=== PATIENT | male | born 1965 | race Caucasian/White ===

== ENCOUNTER 2018-06-13 22:25 | Emergency (ER) | payer SELFPAY ==
[2018-06-13 23:02] VITALS: PULSE 53
[2018-06-13] MEDS ORDERED: SODIUM CHLORIDE 0.9% 1,000 ML IV STA (23:17)
--- NOTE | 2018-06-13 23:17 | ED ---
Chest Pain HPI - General Chief Complaint: Chest Pain Stated Complaint: sharp pain in right side of chest Time Seen by Provider: 06/13/18 23:17 Source: patient, RN notes reviewed, old records reviewed Mode of arrival: ambulatory Limitations: no limitations - History of Present Illness Initial Comments: This is a 52-year-old male the ER for evaluation chest pain. Presenting with right-sided chest pain right-sided abdominal pain. Sharp stinging pain that was episodic after eating tonight. Patient does have history of heart disease with prior stents. Patient states that time that was severe crushing chest pain feeling like he was stuck in between a bike. Patient denies any recent medication changes, he states he has been working longer hours than normal secondary to holiday but denies any other change in medications no change distress denies drugs rel call. No fevers cough or congestion currently. Patient is currently chest pain-free or pain-free MD Complaint: chest pain (Right-sided flank pain) -: hour(s) Onset: during rest, after eating Pain Location: right chest (Right flank) Pain Radiation: none, abdomen Severity: moderate Severity scale (1-10): 3 Quality: sharp Consistency: intermittent, now resolved Improves With: nothing Worsens With: nothing Anginal Symptoms: other (None) Other Symptoms: other (None) Treatments Prior to Arrival: none - Related Data Home Medications Medication Instructions Recorded Confirmed Aspirin EC [Ecotrin Low Dose] 162 mg PO DAILY 06/13/18 06/13/18 Atorvastatin [Lipitor] 80 mg PO DAILY 06/13/18 06/13/18 Clopidogrel [Plavix] 75 mg PO DAILY 06/13/18 06/13/18 Lisinopril [Zestril] 20 mg PO DAILY 06/13/18 06/13/18 Metoprolol Tartrate [Lopressor] 25 mg PO DAILY 06/13/18 06/13/18 Allergies Allergy/AdvReac Type Severity Reaction Status Date / Time No Known Allergies Allergy Verified 06/13/18 23:21 Review of Systems ROS Statement: Those systems with pertinent positive or pertinent negative responses have been documented in the HPI. ROS Other: All systems not noted in ROS Statement are negative. EKG Findings - EKG Comments: EKG Findings:: EKG shows sinus recurred 53, NC 200, QRS 70, QTc 394 Past Medical History Past Medical History: Chest Pain / Angina, Hyperlipidemia, Hypertension, Myocardial Infarction ([place]) History of Any Multi-Drug Resistant Organisms: None Reported Past Surgical History: Heart Catheterization With Stent, Orthopedic Surgery Additional Past Surgical History / Comment(s): left wrist and left shoulder Past Psychological History: No Psychological Hx Reported Smoking Status: Current every day smoker Past Alcohol Use History: None Reported Past Drug Use History: None Reported General Exam Limitations: no limitations General appearance: alert, in no apparent distress Head exam: Present: atraumatic, normocephalic, normal inspection Eye exam: Present: normal appearance, PERRL, EOMI. Absent: scleral icterus, conjunctival injection, periorbital swelling ENT exam: Present: normal exam, mucous membranes moist Neck exam: Present: normal inspection. Absent: tenderness, meningismus, lymphadenopathy Respiratory exam: Present: normal lung sounds bilaterally. Absent: respiratory distress, wheezes, rales, rhonchi, stridor Cardiovascular Exam: Present: regular rate, normal rhythm, normal heart sounds. Absent: systolic murmur, diastolic murmur, rubs, gallop, clicks GI/Abdominal exam: Present: soft, normal bowel sounds. Absent: distended, tenderness, guarding, rebound, rigid Extremities exam: Present: normal inspection, full ROM, normal capillary refill. Absent: tenderness, pedal edema, joint swelling, calf tenderness Back exam: Present: normal inspection Neurological exam: Present: alert, oriented X3, CN II-XII intact Psychiatric exam: Present: normal affect, normal mood Skin exam: Present: warm, dry, intact, normal color. Absent: rash Course Vital Signs 06/13/18 06/13/18 22:57 23:15 Temperature 98.2 F Pulse Rate 53 L 53 L Respiratory 17 16 Rate Blood Pressure 131/87 110/93 O2 Sat by Pulse 97 97 Oximetry - Reevaluation(s) Reevaluation #1: 06/13/18 23:48 Medical records reviewed Reevaluation #2: 06/13/18 23:48 Patient remains asymptomatic Chest Pain MDM - MDM 52 male the ER for eversion of stabbing right-sided flank pain which is intermittent and now resolved. No abdominal tenderness. EKG and labwork is normal patient can be discharged home Disposition Clinical Impression: Chest pain Disposition: HOME SELF-CARE Condition: Good Instructions: Chest Pain (ED) Is patient prescribed a controlled substance at d/c from ED?: No Referrals: None,Stated [Primary Care Provider] - 1-2 days
[2018-06-13 23:41] LABS: Basophils # (A) 0.1 k/uL (0-0.2); Basophils % (A) 1 %; Eosinophils # (A) 0.2 k/uL (0-0.7); Eosinophils % (A) 3 %; HCT 46.9 % (39.0-53.0); HGB 15.5 gm/dL (13.0-17.5); Lymphocytes # (A) 2.2 k/uL (1.0-4.8); Lymphocytes % (A) 29 %; MCH 29.7 pg (25.0-35.0); Mean Platelet Volume 7.1; Monocytes # (A) 0.5 k/uL (0-1.0); Monocytes % (A) 6 %; Neutrophils # (A) 4.6 k/uL (1.3-7.7); Neutrophils % (A) 59 %; Platelet Count 214 k/uL (150-450); RBC 5.21 m/uL (4.30-5.90); RDW 12.9 % (11.5-15.5); WBC 7.8 k/uL (3.8-10.6)
[2018-06-13 23:52] LABS: INR 0.9 (<1.2); Partial Thromboplastin Time 25.3 sec (22.0-30.0); Prothrombin Time 10.1 sec (9.0-12.0)
[2018-06-14 00:03] LABS: ALT 50 U/L (21-72); AST 26 U/L (17-59); Albumin 4.1 g/dL (3.5-5.0); Alkaline Phosphatase 49 U/L (38-126); Anion Gap 8 mmol/L; Blood Urea Nitrogen 19 mg/dL (9-20); Calcium 9.6 mg/dL (8.4-10.2); Carbon Dioxide 28 mmol/L (22-30); Chloride 105 mmol/L (98-107); Glucose 107 mg/dL (74-99); Lipase 141 U/L (23-300); Magnesium 2.1 mg/dL (1.6-2.3); Potassium 4.3 mmol/L (3.5-5.1); Sodium 141 mmol/L (137-145); Total Bilirubin 0.9 mg/dL (0.2-1.3); Total Protein 6.5 g/dL (6.3-8.2)
--- NOTE | 2018-06-14 00:07 | XR ---
EXAMINATION TYPE: XR chest 2V DATE OF EXAM: 06/13/2018 COMPARISON: NONE HISTORY: Chest pain TECHNIQUE: Frontal and lateral views of the chest are obtained. FINDINGS: Heart and mediastinum are normal. Lungs are clear. Diaphragm is normal. There are chest le ads. Bony thorax is intact. IMPRESSION: Normal chest
[2018-06-14 00:24] LABS: Creatine Kinase 114 U/L (55-170)
[2018-06-14 00:37] LABS: Creatine Kinase MB 1.5 ng/mL (0.0-2.4); Troponin I <0.012 ng/mL (0.000-0.034)
[2018-06-14 01:10] VITALS: BP 122/88; RESP 18; TEMP 97.9
== END 2018-06-14 01:09 | disposition home or self-care (01) ==
LOC: EC 22:25
DX: R07.9 Chest pain, unspecified (principal); R10.9 Unspecified abdominal pain; E78.5 Hyperlipidemia, unspecified; I10 Essential (primary) hypertension; I25.2 Old myocardial infarction; F17.200 Nicotine dependence, unspecified, uncomplicated; Z79.02 Long term (current) use of antithrombotics/antiplatelets; Z79.82 Long term (current) use of aspirin; Z79.899 Other long term (current) drug therapy; Z86.79 Personal history of other diseases of the circulatory system; Z95.5 Presence of coronary angioplasty implant and graft
CPT/HCPCS: 36415; 71046; 80053; 82550; 82553; 83690; 83735; 83880; 84484; 85025; 85610; 85730; 93005; 96360; 96361; 99285

== ENCOUNTER 2021-10-09 20:59 | Emergency (ER) | payer OTHER ==
--- NOTE | 2021-10-09 23:54 | XR ---
EXAMINATION TYPE: XR chest 2V DATE OF EXAM: 10/09/2021 COMPARISON: 06/13/2018 HISTORY: Fever TECHNIQUE: 2 views FINDINGS: There is some linear density at the left lung base. Heart and mediastinum are normal. There are no hilar masses. Costophrenic angles are clear. There is some mild spurring in the thoracic spin e. IMPRESSION: Mild subsegmental atelectasis. Normal heart. Atelectasis appears new compared to old exam .
[2021-10-10 01:06] LABS: Basophils # (A) 0.1 k/uL (0-0.2); Basophils % (A) 1 %; Eosinophils # (A) 0.2 k/uL (0-0.7); Eosinophils % (A) 2 %; HCT 47.4 % (39.0-53.0); HGB 16.2 gm/dL (13.0-17.5); Lymphocytes # (A) 0.7 k/uL (1.0-4.8); Lymphocytes % (A) 6 %; MCH 30.8 pg (25.0-35.0); MCHC 34.2 g/dL (31.0-37.0); MCV 90.1 fL (80.0-100.0); Mean Platelet Volume 8.5; Monocytes % (A) 9 %; Neutrophils # (A) 9.7 k/uL (1.3-7.7); Neutrophils % (A) 82 %; Platelet Count 159 k/uL (150-450); RBC 5.26 m/uL (4.30-5.90); RDW 12.5 % (11.5-15.5); WBC 11.8 k/uL (3.8-10.6)
[2021-10-10 01:18] LABS: ALT 32 U/L (4-49); AST 30 U/L (17-59); African American GFR (CKD) >90 (>60 ml/min/1.73 sqM); Albumin 4.2 g/dL (3.5-5.0); Alkaline Phosphatase 60 U/L (38-126); Anion Gap 11 mmol/L; Blood Urea Nitrogen 21 mg/dL (9-20); Calcium 8.6 mg/dL (8.4-10.2); Carbon Dioxide 26 mmol/L (22-30); Chloride 94 mmol/L (98-107); Glucose 141 mg/dL (74-99); Non-African American GFR(CKD) >90 (>60 ml/min/1.73 sqM); Potassium 4.8 mmol/L (3.5-5.1); Sodium 131 mmol/L (137-145); Total Bilirubin 1.6 mg/dL (0.2-1.3); Total Protein 7.1 g/dL (6.3-8.2)
[2021-10-10] MEDS ORDERED: SODIUM CHLORIDE 0.9% 1,000 ML IV ONE (01:45)
[2021-10-10 02:18] LABS: Appearance,Urine Clear (Clear); Bilirubin,Urine Negative (Negative); Blood,Urine Trace (Negative); Color,Urine Yellow; Glucose,Urine (UA) Negative (Negative); Ketones,Urine Negative (Negative); Leukocyte Esterase,Urine Negative (Negative); Mucus,Urine Moderate /hpf; Nitrite,Urine Negative (Negative); PH, Urine 5.5 (5.0-8.0); Protein,Urine 1+ (Negative); RBC,Urine 3 /hpf (0-5); Specific Gravity,Urine 1.034 (1.001-1.035); Squamous Epithelial Cell,Urine <1 /hpf (0-4); Urobilinogen,Urine <2.0 mg/dL (<2.0); WBC,Urine 1 /hpf (0-5)
--- NOTE | 2021-10-10 03:33 | CT ---
EXAMINATION TYPE: CT soft tissue neck w con DATE OF EXAM: 10/10/2021 COMPARISON: None HISTORY: pain CT DLP: 404.3 mGycm Automated exposure control for dose reduction was used. CONTRAST: Performed with IV Contrast, patient injected with 100 mL of Isovue 300. Images obtained from the top of the aortic arch to the top of the frontal sinuses with IV contrast. Superior mediastinum is intact. Thyroid gland is symmetric. There is contrast opacification of the ca rotid arteries and jugular veins. There is arterial flow in both vertebral arteries. There is moderat e spondylotic changes in the cervical spine with some spinal stenosis in the lower cervical spine. Tr achea is intact. Submandibular salivary glands are intact. Parotid glands are intact. There are bilat eral enlarged submandibular anterior triangle cervical lymph nodes that measure up to 1.8 cm. The ton isai appears normal. Epiglottis is normal. Tonsils and adenoids appear normal. The mandibular ring is intact. The maxilla is intact. I see no focal bone destruction. There are multiple lower missing teet h. Temporomandibular joints are intact. There are bilateral parotid gland lymph nodes that measure up to 10 mm. IMPRESSION: No evidence of osteomyelitis. No fracture. No evidence of an abscess. There are nonspecific bilateral anterior triangle cervical lymph nodes.
[2021-10-10] MEDS ORDERED: ACETAMINOPHEN TAB 325 MG TAB PO STA (03:50)
[2021-10-10] MEDS ORDERED: IBUPROFEN 400 MG TAB PO STA (03:50)
--- NOTE | 2021-10-10 05:36 | ED ---
Fever HPI - General Chief Complaint: Fever Stated Complaint: Fever,Diarrhea,sore on head Time Seen by Provider: 10/09/21 23:24 Source: patient Mode of arrival: ambulatory Limitations: no limitations - History of Present Illness Initial Comments: Patient is 56-year-old man presenting to have evaluation of fever as well as sore throat that is been going on since about Monday. The patient states he has also had some episodes of diarrhea. No bloody or tarry stools. No real abdominal pain. MD Complaint: fever Onset/Timin -: days(s) Temperature Source: subjective Associated Symptoms: headache, sore throat, diarrhea - Related Data Home Medications Medication Instructions Recorded Confirmed Aspirin EC [Ecotrin Low Dose] 162 mg PO DAILY 06/13/18 06/13/18 Atorvastatin [Lipitor] 80 mg PO DAILY 06/13/18 06/13/18 Clopidogrel [Plavix] 75 mg PO DAILY 06/13/18 06/13/18 Lisinopril [Zestril] 20 mg PO DAILY 06/13/18 06/13/18 Metoprolol Tartrate [Lopressor] 25 mg PO DAILY 06/13/18 06/13/18 Previous Rx's Medication Instructions Recorded Amoxicillin/Potassium Clav 1 tab PO Q12HR 1 Days #14 tab 10/10/21 [Augmentin 875-125 Tablet] Allergies Allergy/AdvReac Type Severity Reaction Status Date / Time No Known Allergies Allergy Verified 06/13/18 23:21 Review of Systems ROS Statement: Those systems with pertinent positive or pertinent negative responses have been documented in the HPI. ROS Other: All systems not noted in ROS Statement are negative. Constitutional: Reports: fever. Denies: weakness ENT: Reports: throat pain. Denies: ear pain, congestion Respiratory: Denies: cough, dyspnea Cardiovascular: Denies: chest pain, palpitations, edema Gastrointestinal: Reports: diarrhea. Denies: abdominal pain, nausea, vomiting, melena, hematochezia Genitourinary: Denies: dysuria, hematuria Musculoskeletal: Denies: back pain Skin: Denies: rash Neurological: Denies: headache, weakness Past Medical History Past Medical History: Chest Pain / Angina, Hyperlipidemia, Hypertension, Myocardial Infarction ([place]) History of Any Multi-Drug Resistant Organisms: None Reported Past Surgical History: Heart Catheterization With Stent, Orthopedic Surgery Additional Past Surgical History / Comment(s): left wrist and left shoulder Past Psychological History: No Psychological Hx Reported Smoking Status: Current every day smoker Past Alcohol Use History: None Reported Past Drug Use History: None Reported General Exam Limitations: no limitations General appearance: alert, in no apparent distress Head exam: Present: atraumatic, normocephalic Eye exam: Present: normal appearance. Absent: scleral icterus, conjunctival injection ENT exam: Present: normal oropharynx Neck exam: Present: normal inspection, full ROM, lymphadenopathy. Absent: tenderness, meningismus Respiratory exam: Present: normal lung sounds bilaterally. Absent: respiratory distress, wheezes, rales, rhonchi, stridor Cardiovascular Exam: Present: regular rate, normal rhythm, normal heart sounds. Absent: systolic murmur, diastolic murmur, rubs, gallop GI/Abdominal exam: Present: soft. Absent: distended, tenderness, guarding, rebound, rigid, mass Extremities exam: Present: normal inspection, normal capillary refill. Absent: pedal edema, calf tenderness Back exam: Present: normal inspection. Absent: CVA tenderness (R), CVA tenderness (L) Neurological exam: Present: alert Skin exam: Present: warm, dry, intact, normal color. Absent: rash Course Vital Signs 10/09/21 10/10/21 10/10/21 21:07 00:44 03:45 Temperature 101.1 F H 101.7 F H Pulse Rate 91 85 80 Respiratory 16 18 22 Rate Blood Pressure 124/83 136/84 142/85 O2 Sat by Pulse 93 L 94 L 94 L Oximetry 10/10/21 06:47 Temperature 98.5 F Pulse Rate 86 Respiratory 18 Rate Blood Pressure 148/75 O2 Sat by Pulse 95 Oximetry Medical Decision Making - Lab Data Result diagrams: 10/10/21 00:50 10/10/21 00:50 Lab Results 10/10/21 10/10/21 10/10/21 Range/Units 00:50 00:50 00:50 WBC 11.8 H (3.8-10.6) k/uL RBC 5.26 (4.30-5.90) m/uL Hgb 16.2 (13.0-17.5) gm/dL Hct 47.4 (39.0-53.0) % MCV 90.1 (80.0-100.0) fL MCH 30.8 (25.0-35.0) pg MCHC 34.2 (31.0-37.0) g/dL RDW 12.5 (11.5-15.5) % Plt Count 159 (150-450) k/uL MPV 8.5 Neutrophils % 82 % Lymphocytes % 6 % Monocytes % 9 % Eosinophils % 2 % Basophils % 1 % Neutrophils # 9.7 H (1.3-7.7) k/uL Lymphocytes # 0.7 L (1.0-4.8) k/uL Monocytes # 1.0 (0-1.0) k/uL Eosinophils # 0.2 (0-0.7) k/uL Basophils # 0.1 (0-0.2) k/uL Sodium 131 L (137-145) mmol/L Potassium 4.8 (3.5-5.1) mmol/L Chloride 94 L (98-107) mmol/L Carbon Dioxide 26 (22-30) mmol/L Anion Gap 11 mmol/L BUN 21 H (9-20) mg/dL Creatinine 0.91 (0.66-1.25) mg/dL Est GFR (CKD-EPI)AfAm >90 (>60 ml/min/1.73 sqM) Est GFR (CKD-EPI)NonAf >90 (>60 ml/min/1.73 sqM) Glucose 141 H (74-99) mg/dL Plasma Lactic Acid Geo 1.2 (0.7-2.0) mmol/L Calcium 8.6 (8.4-10.2) mg/dL Total Bilirubin 1.6 H (0.2-1.3) mg/dL AST 30 (17-59) U/L ALT 32 (4-49) U/L Alkaline Phosphatase 60 (38-126) U/L Total Protein 7.1 (6.3-8.2) g/dL Albumin 4.2 (3.5-5.0) g/dL Urine Color Urine Appearance (Clear) Urine pH (5.0-8.0) Ur Specific [place] (1.001-1.035) Urine Protein (Negative) Urine Glucose (UA) (Negative) Urine Ketones (Negative) Urine Blood (Negative) Urine Nitrite (Negative) Urine Bilirubin (Negative) Urine Urobilinogen (<2.0) mg/dL Ur Leukocyte Esterase (Negative) Urine RBC (0-5) /hpf Urine WBC (0-5) /hpf Ur Squamous Epith Cells (0-4) /hpf Urine Mucus (None) /hpf C. difficile (EIA) Intrp (Negative) Influenza Type A (PCR) (Not Detectd) Influenza Type B (PCR) (Not Detectd) RSV (PCR) (Not Detectd) SARS-CoV-2 (PCR) (Not Detectd) 10/10/21 10/10/21 10/10/21 Range/Units 00:57 01:47 04:56 WBC (3.8-10.6) k/uL RBC (4.30-5.90) m/uL Hgb (13.0-17.5) gm/dL Hct (39.0-53.0) % MCV (80.0-100.0) fL MCH (25.0-35.0) pg MCHC (31.0-37.0) g/dL RDW (11.5-15.5) % Plt Count (150-450) k/uL MPV Neutrophils % % Lymphocytes % % Monocytes % % Eosinophils % % Basophils % % Neutrophils # (1.3-7.7) k/uL Lymphocytes # (1.0-4.8) k/uL Monocytes # (0-1.0) k/uL Eosinophils # (0-0.7) k/uL Basophils # (0-0.2) k/uL Sodium (137-145) mmol/L Potassium (3.5-5.1) mmol/L Chloride (98-107) mmol/L Carbon Dioxide (22-30) mmol/L Anion Gap mmol/L BUN (9-20) mg/dL Creatinine (0.66-1.25) mg/dL Est GFR (CKD-EPI)AfAm (>60 ml/min/1.73 sqM) Est GFR (CKD-EPI)NonAf (>60 ml/min/1.73 sqM) Glucose (74-99) mg/dL Plasma Lactic Acid Geo (0.7-2.0) mmol/L Calcium (8.4-10.2) mg/dL Total Bilirubin (0.2-1.3) mg/dL AST (17-59) U/L ALT (4-49) U/L Alkaline Phosphatase (38-126) U/L Total Protein (6.3-8.2) g/dL Albumin (3.5-5.0) g/dL Urine Color Yellow Urine Appearance Clear (Clear) Urine pH 5.5 (5.0-8.0) Ur Specific [place] 1.034 (1.001-1.035) Urine Protein 1+ H (Negative) Urine Glucose (UA) Negative (Negative) Urine Ketones Negative (Negative) Urine Blood Trace H (Negative) Urine Nitrite Negative (Negative) Urine Bilirubin Negative (Negative) Urine Urobilinogen <2.0 (<2.0) mg/dL Ur Leukocyte Esterase Negative (Negative) Urine RBC 3 (0-5) /hpf Urine WBC 1 (0-5) /hpf Ur Squamous Epith Cells <1 (0-4) /hpf Urine Mucus Moderate H (None) /hpf C. difficile (EIA) Intrp Negative (Negative) Influenza Type A (PCR) Not Detected (Not Detectd) Influenza Type B (PCR) Not Detected (Not Detectd) RSV (PCR) Not Detected (Not Detectd) SARS-CoV-2 (PCR) Not Detected (Not Detectd) Disposition Clinical Impression: Fever Disposition: HOME SELF-CARE Condition: Fair Instructions (If sedation given, give patient instructions): Fever in Adults (ED) Prescriptions: Amoxicillin/Potassium Clav [Augmentin 875-125 Tablet] 1 tab PO Q12HR 1 Days #14 tab Is patient prescribed a controlled substance at d/c from ED?: No Referrals: Tabitha Tyson MD [Primary Care Provider] - 1-2 days Isamar Nichols MD [STAFF PHYSICIAN] - 1-2 days
[2021-10-10 06:48] VITALS: BP 148/75; PULSE 86; RESP 18; TEMP 98.5
== END 2021-10-10 06:50 | disposition home or self-care (01) ==
LOC: EC 20:59
DX: R50.9 Fever, unspecified (principal); Z20.822 Contact with and (suspected) exposure to COVID-19; I10 Essential (primary) hypertension; I25.2 Old myocardial infarction; E78.5 Hyperlipidemia, unspecified; F17.200 Nicotine dependence, unspecified, uncomplicated; Z79.02 Long term (current) use of antithrombotics/antiplatelets; Z79.82 Long term (current) use of aspirin; Z79.899 Other long term (current) drug therapy
CPT/HCPCS: 36415; 80053; 83605; 85025; 81001; 87040; 87324; 87636; 71046; 70491; 99284; 96365; J0696; Q9967